=== PATIENT | male | born 1970 | race Asian ===

== ENCOUNTER 2019-05-17 23:06 | Emergency (ER) | payer OTHER ==
[~2019-05-17] VITALS: Ht 172.7 cm; Wt 77.1 kg
[~2019-05-17 23:06] MED LIST: LOMOTIL 0.025 M1 TA1 PO; NYSTATIN CREAM15 GM T
[2019-05-18] MEDS ORDERED: TAMIFLU 75MG CA75 MG PO (00:24)
== END 2019-05-18 01:02 | disposition home or self-care (01) ==
LOC: ED 23:06
DX: J10.1 Influenza due to other identified influenza virus with other respiratory manifestations (principal); I10 Essential (primary) hypertension